=== PATIENT | female | born 1965 ===

== ENCOUNTER 2018-04-16 11:48 | Emergency (ER) | payer OTHER ==
[2018-04-16 12:36] VITALS: BP 144/89
[2018-04-16] MEDS ORDERED: Ketorolac INJ* 30 MG/ML 1 ML VIAL ONE (13:07)
[2018-04-16] MEDS ORDERED: Ketorolac INJ* 30 MG/ML 1 ML VIAL IM ONE (13:07)
--- NOTE | 2018-04-16 13:09 | UC ---
Neck Pain HPI - HPI Summary HPI Summary: The patient is a 52-year-old female that presents here with severe left lateral neck pain that started today. The pain radiates to her left shoulder. She states that she woke this a.m. with some mild neck tightness. She did some stretching exercises and her neck felt better. He went outside to do some yard work. She was using an edger when she started developing left sided neck pain. She has no paresthesias or pain down her left arm. He has limited range of motion to her neck now. If she tries to extend her neck she has a sharp shooting pain. Denies any bowel or bladder problems. Denies any history of neck injury. - History of Current Complaint Chief Complaint: UCGeneralIllness Stated Complaint: NECK PAIN Time Seen by Provider: 04/16/18 12:57 Hx Obtained From: Patient Hx Last Menstrual Period: n/a Onset/Duration Of Injury/Symptoms: Hours Mechanism Of Injury: No Known Trauma Timing: Constant Onset/Duration: Gradual Onset Severity: Severe Pain Intensity: 10 Pain Scale Used: 0-10 Numeric Location: Discrete At: - left trapezius Character: Aching, Stiff, Spasmotic Aggravating Factors: Nothing Associated Signs & Symptoms: Positive: Negative - Risk Factors Meningitis Risk Factors: Negative - Allergies/Home Medications Allergies/Adverse Reactions: Allergies Allergy/AdvReac Type Severity Reaction Status Date / Time No Known Allergies Allergy Verified 04/16/18 12:31 Home Medications: Home Medications [id number] 149-Hyal [Glucosamine-Chondr Complex Tab] 1 each PO DAILY 04/16/18 [History Confirmed 04/16/18] Loratadine 10 mg PO DAILY 04/16/18 [History Confirmed 04/16/18] Mesalamine (NF) [Apriso (NF)] 4 cap PO DAILY 04/16/18 [History Confirmed ] PMH/Surg Hx/FS Hx/Imm Hx Previously Healthy: Yes - Surgical History Surgical History: Yes Surgery Procedure, Year, and Place: partial hysterectomy. tonsillectomy. hernia repair as child - Family History Known Family History: Positive: Hypertension, Diabetes - Social History Alcohol Use: None Substance Use Type: None Smoking Status (MU): Never Smoked Tobacco Review Of Systems Constitutional: Positive: Negative Skin: Positive: Negative Eyes: Positive: Negative ENT: Positive: Negative Respiratory: Positive: Negative Cardiovascular: Positive: Negative Gastrointestinal: Positive: Negative Genitourinary: Positive: Negative Musculoskeletal: Positive: Negative, Myalgia Neurological: Positive: Negative Psychological: Positive: Negative All Other Systems Reviewed And Are Negative: Yes Physical Exam Triage Information Reviewed: Yes Appearance: Well-Appearing, No Pain Distress, Well-Nourished Vital Signs: Initial Vital Signs Temp 98.6 F 04/16/18 12:28 Pulse 82 04/16/18 12:28 Resp 18 04/16/18 12:28 BP 144/89 04/16/18 12:28 Pulse Ox 99 04/16/18 12:28 Vital Signs Reviewed: Yes Eyes: Positive: Conjunctiva Clear ENT: Positive: Hearing grossly normal. Negative: Nasal congestion, Nasal drainage, Trismus, Muffled voice, Hoarse voice, Uvula midline Neck: Positive: Supple, Nontender, No Lymphadenopathy Respiratory: Positive: Lungs clear, Normal breath sounds, No respiratory distress, No accessory muscle use Cardiovascular: Positive: RRR, No Murmur Musculoskeletal: Positive: ROM Intact, No Edema Neurological: Positive: Alert, Muscle Tone Normal Psychological Exam: Normal Skin Exam: Normal Diagnostics - Radiology No standard instances Xray Interpretation: No Acute Changes Radiology Interpretation Completed By: Radiologist Neck Pain Course/Dx - Differential Dx/Diagnosis Provider Diagnoses: left trapezius strain /spasm Discharge - Sign-Out/Discharge Documenting (check all that apply): Discharge/Admit/Transfer - Discharge Plan Condition: Stable Disposition: HOME Patient Education Materials: Cervical Strain (ED), Soft Cervical Collar (ED) Referrals: Malina Castro PA [Primary Care Provider] - 1 Week (if not better) Additional Instructions: ibuprofen 200mg 3 pills 3-4 x day with food for pain - Billing Disposition and Condition Condition: STABLE Disposition: Home
--- NOTE | 2018-04-16 13:56 | RAD ---
INDICATION: Neck stiffness after gardening COMPARISON: None TECHNIQUE: Routine five-view imaging was performed FINDINGS: Bones: There are no acute bony findings. There are no significant osteoarthritic findings. Craniocervical junction: The odontoid and atlantodental interval are normal. Alignment: Cervical alignment is normal. There is a moderate S type scoliotic deformity with convexity of the upper thoracic spine to the left Disc spaces: The disc spaces are well-maintained Soft tissues: The prevertebral soft tissues are normal. IMPRESSION: NO ACUTE CERVICAL SPINE FINDINGS. THORACIC SCOLIOSIS.
== END 2018-04-16 14:20 | disposition home or self-care (01) ==
LOC: UCCORT 11:48
DX: M62.830 Muscle spasm of back (principal); S39.012A Strain of muscle, fascia and tendon of lower back, initial encounter; X58.XXXA Exposure to other specified factors, initial encounter; Y93.H2 Activity, gardening and landscaping; Y92.007 Garden or yard of unspecified non-institutional (private) residence as the place of occurrence of the external cause
CPT/HCPCS: 72050; 96372; 99202; G0463; J1885